=== PATIENT | female | born 1990 | race Caucasian/White ===

== ENCOUNTER 2018-05-25 09:54 | Emergency (ER) | payer OTHER ==
[2018-05-25] MEDS ORDERED: IBUPROFEN 200 MG TAB PO ONE (10:07)
--- NOTE | 2018-05-25 10:20 | EDPHY ---
H & P Time Seen by Provider: 05/25/18 10:02 HPI/ROS: CHIEF COMPLAINT: Left foot pain History by patient HISTORY OF PRESENT ILLNESS: 28-year-old woman presents complaining of left foot pain after falling off a step and on a pain ground and everting foot. The injury occurred 5 hr prior to arrival. She said it was painful but she put a wrap on it took some Tylenol and went to work. She was walking with difficulty and pain. At work and she stepped down off a high stool she had another severe pain in her foot prompting her to seek medical attention. She denies any other pain or injury. 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 REVIEW OF SYSTEMS: As in HPI, and all other systems reviewed and are negative Smoking Status: Former smoker Physical Exam: General Appearance: Alert and tearful. Head: Normocephalic, atraumatic Eyes: Pupils equal and round no injection. Extraocular movements are intact. Musculoskeletal: Neck is supple and nontender. Extremities: Left foot with positive mild swelling over base of 5th metatarsal with tenderness. DP pulses 2+ and equal to right. Patient wiggles her toes with pain. Cap refills less than seconds. Ankle has full range of motion without swelling or tenderness. There is no proximal fibular tenderness. Right foot is unaffected. Skin: No rashes or lesions except as described above. Constitutional: Initial Vital Signs Temperature (C) 36.4 C 05/25/18 10:02 Heart Rate 98 05/25/18 10:02 Respiratory Rate 16 05/25/18 10:02 Blood Pressure 116/82 H 05/25/18 10:02 O2 Sat (%) 97 05/25/18 10:02 O2 Delivery Mode Room Air Allergies/Adverse Reactions: Penicillins Allergy (Verified 05/25/18 10:02) Hives Home Medications: Medication Instructions Recorded Lidocaine [Lidoderm] 1 each TP DAILY PRN #30 adh..patch 05/25/18 MDM/Departure - MDM Imaging: I viewed and interpreted images myself Medications Given: Discontinued Medications Ibuprofen (Motrin) 600 mg PO EDNOW ONE Stop: 05/25/18 10:08 Last Admin: 05/25/18 10:13 Dose: 600 mg ED Course/Re-evaluation: 28-year-old woman presents with left foot pain and swelling after traumatic injury. Patient was given ice and ibuprofen for her pain in the ED with some improvement. X-ray showed no evidence of fracture. Patient was placed in a hard-soled postop shoe and we discussed conservative measures and home care. Patient is discharged home in stable condition. - Depart Disposition: Home, Routine, Self-Care Clinical Impression: Contusion, foot Qualifiers: Encounter type: initial encounter Laterality: left Qualified Code(s): S90.32XA - Contusion of left foot, initial encounter Condition: Good Instructions: Contusion in Adults (ED) Additional Instructions: You were seen by Dr. Kait Zheng today. Your x-ray showed no evidence of fracture. Continue to ice her foot and keep it elevated to reduce swelling and pain. He may take ibuprofen 600 mg 4 times a day with meals and at bedtime. In addition you may take acetaminophen ( Tylenol) 1000 mg 4 times a day. You may use lidocaine patches also for the pain. Return for any worsening or new concerns. Stand Alone Forms: Work Excuse Prescriptions: Lidocaine [Lidoderm] 1 each TP DAILY PRN #30 adh..patch PRN Reason: pain Referrals: NONE *PRIMARY CARE P,. [Primary Care Provider] - As per Instructions
[2018-05-25 11:16] VITALS: BP 111/74
== END 2018-05-25 10:50 | disposition home or self-care (01) ==
LOC: CED 09:54
DX: S90.32XA Contusion of left foot, initial encounter (principal); Z87.891 Personal history of nicotine dependence; W10.8XXA Fall (on) (from) other stairs and steps, initial encounter
CPT/HCPCS: 73630-PO; L4386